=== PATIENT | male | born 1970 ===

== ENCOUNTER 2018-10-18 14:24 | Emergency (ER) | payer SELFPAY ==
[2018-10-18 14:24] VITALS: BMI 25.1
[2018-10-18 14:41] VITALS: BP 129/73; PULSE 89; RESP 20; TEMP 98.1; O2SAT 96
[2018-10-18] MEDS ORDERED: Oxycodone/Acetaminophen 5/325 mg Tab PO STA (14:50)
[2018-10-18] MEDS ORDERED: Aluminum Hydroxide/Magnesium Hydroxide Susp (30 mL) PO STA (14:51)
--- NOTE | 2018-10-18 14:53 | C.PDOC ---
History Of Present Illness 48 year old male presents to the emergency department with complaints of left lower teeth pain. Patient is status-post I&D of multiple dental abscesses, and is scheduled for an 8PM dental appointment today but is requesting something for the pain. Patient is currently taking PO Clindamycin. Time Seen by Provider: 10/18/18 14:33 Chief Complaint (Nursing): Dental Pain History Per: Patient History/Exam Limitations: no limitations Onset/Duration Of Symptoms: Days Current Symptoms Are (Timing): Still Present Quality: Positive for: "Pain" Past Medical History Reviewed: Historical Data, Nursing Documentation, Vital Signs Vital Signs: Last Vital Signs Temp 98.1 F 10/18/18 14:38 Pulse 89 10/18/18 14:38 Resp 20 10/18/18 14:38 BP 129/73 10/18/18 14:38 Pulse Ox 96 10/18/18 14:38 - Medical History PMH: Asthma Surgical History: No Surg Hx Family History: States: No Known Family Hx - Social History Hx Alcohol Use: No Hx Substance Use: No Review Of Systems Constitutional: Negative for: Fever, Chills ENT: Positive for: Other (dental pain) Respiratory: Negative for: Cough Gastrointestinal: Negative for: Nausea, Vomiting Physical Exam - Physical Exam Appears: Non-toxic, In Acute Distress (mild ) Skin: Normal Color, Warm, Dry Head: Atraumatic, Normacephalic Eye(s): bilateral: Normal Inspection Oral Mucosa: Moist Teeth: No Normal Dentition (poor dentition to tooth number 22 and 23 ) Gingiva: Erythema (around teeth 22 and 23), Swelling (around teeth 22 and 23), Other (pustule to gingiva around teeth 22 and 23) Throat: Normal, No Erythema, No Exudate Neck: Normal, Supple Cardiovascular: Rhythm Regular, No Murmur Respiratory: Normal Breath Sounds, No Rales, No Rhonchi, No Wheezing Neurological/Psych: Oriented x3, Normal Speech, Normal Cognition ED Course And Treatment O2 Sat by Pulse Oximetry: 96 (RA) Pulse Ox Interpretation: Normal Progress Note: Plan: Lidocaine 2% 15ml Viscous. Maalox 30ml PO. Percocet 2tab PO Disposition Counseled Patient/Family Regarding: Diagnosis, Need For Followup - Disposition Referrals: [facility] [Outside] Disposition: HOME/ ROUTINE Disposition Time: 15:00 Condition: STABLE Additional Instructions: FOLLOW UP WITH YOUR DENTIST AT 8PM TONIGHT RETURN TO ER IF SYMPTOMS WORSEN Instructions: Tooth Abscess (DC), Dental Pain (DC) Forms: [employer] (Eth[place]ian) Print Language: TAMAZIGHT - POA Present On Arrival: None - Clinical Impression Clinical Impression: Dental abscess, Pain, dental - Scribe Statement The provider has reviewed the documentation as recorded by the Scribe (Orville Rosenberg) Provider Attestation: All medical record entries made by the Scribe were at my direction and personally dictated by me. I have reviewed the chart and agree that the record accurately reflects my personal performance of the history, physical exam, medical decision making, and the department course for this patient. I have also personally directed, reviewed, and agree with the discharge instructions and disposition.
[2018-10-18] MEDS ORDERED: Oxycodone/Acetaminophen 5/325 mg Tab ONE ×2 (14:59→15:03)
[2018-10-18] MEDS ORDERED: Aluminum Hydroxide/Magnesium Hydroxide Susp (30 mL) ONE (14:59)
== END 2018-10-18 15:05 | disposition home or self-care (01) ==
LOC: C.ER 14:24
DX: K04.7 Periapical abscess without sinus (principal); K08.89 Other specified disorders of teeth and supporting structures